=== PATIENT | female | born 1980 ===

== ENCOUNTER → 2020-12-30 | Outpatient (CLI) | payer BC ==
--- NOTE | 2020-12-30 12:03 | Diagnostic Imaging Report ---
PROCEDURE: MRI right joint lower extremity without contrast. TECHNIQUE: Multiplanar, multisequence non contrast-enhanced MRI of the right lower extremity was accomplished. INDICATION: Right knee pain There are no prior studies available for comparison. The proton dense fat-saturated sagittal series reveals a prominent area of abnormal signal involving the posterior horn and root of the medial meniscus. This would be consistent with a tear. The lateral meniscus is intact. 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 The articular surface of the medial femoral condyle is thinned and there are small areas of increased signal along the opposing surfaces of the medial femoral condyle and the medial proximal tibia on the coronal STIR series. These findings may be related to bone edema from repetitive trauma. There is also perhaps mild edema and some fluid interposed between the knee joint and the medial collateral liver. This does suggest that there is an element of inflammation present. The parasagittal images show that the anterior and posterior cruciate ligaments, quadriceps and infrapatellar tendons are intact. The fibular collateral ligament, the femoris tendon and iliotibial band show no sign of an acute injury. There is no sign for a tear in the medial or lateral retinacular. There is no other abnormal signal arising from the osseous structures to suggest bone edema or fracture. There is mild degenerative disease involving the lateral compartment of the knee joint and the patellofemoral space. There is a small joint effusion present as well as a 1.2 x 3.9 cm Cheng's cyst. IMPRESSION: 1. The posterior horn and root of the medial meniscus have been torn have partially degenerated. The injury to the medial meniscus has lead to at least moderate degenerative disease of the knee joint. 2. The lateral meniscus is intact. 3. The major ligaments and tendons show no sign of an acute tear. There may be mild edema/fluid about the medial collateral ligament, however. 4. There is no acute bony abnormality appreciated. 5. There is a small joint effusion and Cheng's cyst. Dictated by: Dictated on workstation # [id number]
== END ==
LOC: RAD 11:00
PROVIDERS: ATTEND Nurse Practitioner Family
DX: M17.11 Unilateral primary osteoarthritis, right knee (principal)
CPT/HCPCS: 73721